=== PATIENT | male | born 1965 | race Two or more races ===

== ENCOUNTER 2024-12-09 13:46 | Emergency (ER) | payer MEDICARE, MEDICAID, SELFPAY ==
[2024-12-09 13:59] VITALS: BP 113/70; PULSE 93; RESP 18; TEMP 36.5; O2SAT 99; BMI 26.0
--- NOTE | 2024-12-09 14:15 | PD.EDSKIN ---
ED Skin Abcess FB-RME/HPI General Chief complaint: Skin/Abscess/Foreign Body Stated complaint: Abscess to left buttock X 1 week Time Seen by Provider: 12/09/24 14:10 Source: patient Arrival date/time: 12/09/24 13:46 59-year-old male with no known medical history presents to the emergency room with a chief complaint of an abscess to his left buttocks x 1 week. Patient states he believes he got bit by a spider. Mode of arrival: ambulatory Limitations: no limitations Related Data Home Medications ?Medication ?Instructions ?Recorded ?Confirmed carisoprodol 350 mg tablet (Soma) 350 mg PO TID 07/29/19 08/27/20 oxycodone-acetaminophen 10 mg-325 1 tab PO TID PRN Pain 07/29/19 08/27/20 mg tablet (Percocet) tramadol 50 mg tablet 50 mg PO TID PRN Pain 07/29/19 08/27/20 Previous Rx's ?Medication ?Instructions ?Recorded clindamycin HCl 150 mg capsule 450 mg (3 x 150 mg) PO TID #90 caps 05/23/20 clindamycin HCl 150 mg capsule 450 mg (3 x 150 mg) PO TID #90 caps 06/17/20 clindamycin HCl 300 mg capsule 300 mg PO TID #21 caps 09/04/21 hydrocodone 5 mg-acetaminophen 325 1 tab PO BID PRN pain #6 tabs 10/20/23 mg tablet hydrocodone 5 mg-acetaminophen 325 1 tab PO BID PRN pain #10 tabs 12/09/24 mg tablet sulfamethoxazole 800 1 tab PO BID #14 tabs 12/09/24 mg-trimethoprim 160 mg tablet (Bactrim DS) Allergies Allergy/AdvReac Type Severity Reaction Status Date / Time ibuprofen AdvReac Severe RASH, GI Verified 12/10/24 16:21 UPSET naproxen AdvReac Severe upset Verified 12/09/24 13:49 stomach Review of Systems Review of Systems Systems Reviewed: All systems reviewed, normal except as documented Constitutional Constitutional: Reports system reviewed and no additional complaints, except as documented, Denies fatigue, Denies fever(s), Denies headache(s) and Denies weakness Eyes Eyes: Reports system reviewed and no additional complaints, except as documented, Denies blurry vision and Denies change in vision ENT Ears, Nose, Mouth, and Throat: Reports system reviewed and no additional complaints, except as documented, Denies otalgia, Denies headache(s), Denies nasal congestion, Denies throat swelling and Denies vertigo Cardiovascular Cardiovascular: Reports system reviewed and no additional complaints, except as documented, Denies chest pain, Denies dyspnea and Denies dyspnea on exertion Respiratory Respiratory: Reports system reviewed and no additional complaints, except as documented, Denies chest congestion, Denies cough, Denies dyspnea, Denies dyspnea on exertion and Denies wheezing Gastrointestinal Gastrointestinal: Reports system reviewed and no additional complaints, except as documented, Denies abdominal pain, Denies cramping, Denies nausea and Denies vomiting Genitourinary Genitourinary: Reports system reviewed and no additional complaints, except as documented, Denies dysuria and Denies hematuria Musculoskeletal Musculoskeletal: Reports system reviewed and no additional complaints, except as documented and Denies back pain Integumentary/Breasts Skin/Breast: Reports system reviewed and no additional complaints, except as documented, Reports pruritus, Reports sores and Reports wounds Neurologic Neurologic: Reports system reviewed and no additional complaints, except as documented, Denies confusion, Denies headache(s), Denies lack of coordination, Denies vertigo and Denies weakness Psychiatric Psychiatric: Reports system reviewed and no additional complaints, except as documented, Denies anxiety, Denies confusion, Denies depression, Denies paranoia, Denies suicidal ideation and Denies tactile hallucinations Endocrine Endocrine: Reports system reviewed and no additional complaints, except as documented and Denies fatigue Hematologic/Lymphatic Hematologic/Lymphatic: Reports system reviewed and no additional complaints, except as documented and Denies lymphadenopathy Allergic/Immunologic Allergic/Immunologic: Reports system reviewed and no additional complaints, except as documented, Denies throat swelling, Denies urticaria and Denies wheezing Past Medical History Past Medical History NEUROLOGIC: Negative Neurological Disorders, Cerebrovascular Accident, Dementia, Alzheimer's Disease, Brain Tumor, Meningitis, Seizures, Epilepsy, Covington's Palsy, Migraine or Head Trauma CARDIAC: Positive Edema (left knee edema); Negative Cardiac Disorders, Myocardial Infarction, Heart Murmur, Hypercholesterolemia, Congestive Heart Failure, Cellulitis, Hypertension or Varicose Veins RESPIRATORY: Negative Chronic Obstructive Pulmonary Disease (COPD), Asthma, Pneumonia, Tuberculosis, Pulmonary Embolism or Sleep Apnea GASTROINTESTINAL: Negative Gastrointestinal Disorders, Hepatitis, Cirrhosis, Pancreatitis, Gall Bladder Disease, Gastrointestinal Bleed, Colitis, Ulcer, Irritable Bowel, Obstructive Bowel, Hemorrhoids or Gastroesophageal Reflux Disease GENITOURINARY: Negative Genitourinary Disorders, Renal Disease, Kidney Stones, Dialysis or Benign Prostatic Hyperplasia MUSCULOSKELETAL: Positive Musculoskeletal Disorders, Arthritis, Rheumatoid Arthritis and Fractures (javier 2007); Negative Degenerative Disk Disease, Gout or Poliovirus ENT: Negative Head Trauma ENDOCRINE: Negative Endocrine Disorders, Diabetes Mellitus Type 1, Diabetes Mellitus Type 2, Hyperthyroidism, Hypothyroidism, Parathyroid Disease or Pituitary Disease HEMATOLOGIC: Negative Anemia, Leukemia or Clotting Problems PSYCHO/SOCIAL: Negative Depression, Anxiety or Post Traumatic Stress Disorder OTHER HISTORY: Negative Hospitalization, Autoimmune Disease, Shingles, Falls, Blood Transfusions, Anesthesia Reactions, Chemotherapy, Radiation Therapy, MRSA, Chicken Pox, Measles, Mumps or Cancer Family History FAMILY HISTORY: Positive Family Surgery (mother-back); Negative Family Psychiatric Problems, Family Respiratory Disorders, Family Cardiac Disorders, Family Gastrointestinal Problems, Family Cancer or Family Anesthesia Reaction Surgical History SURGICAL: Negative Cardiac Surgery, Pacemaker, Endocrine Surgery, Ear Surgery, Tonsillectomy, Abdominal Surgery or Neurologic Surgery Social History SMOKING STATUS: Never smoker ED Exam General Limitations: Present no limitations General appearance: Present alert and in no apparent distress Head Head exam: Present atraumatic Eye Eye exam: Present normal appearance, PERRL and EOMI ENT ENT exam: Present normal exam, normal oropharynx and mucous membranes moist Neck Neck exam: Present normal inspection, full ROM and trachea midline Chest Chest inspection: Present normal inspection and symmetric chest wall rise Respiratory Respiratory exam: Present normal lung sounds bilaterally Cardiovascular Cardiovascular exam: Present regular rate, normal rhythm and normal heart sounds Abdominal Exam Abdominal exam: Present soft and normal bowel sounds Extremities Exam Extremities exam: Present normal inspection and full ROM Back Exam Back exam: Present normal inspection and full ROM Neurological Exam Neurological exam: Present alert, oriented X3 and CN II-XII intact Psychiatric Psychiatric exam: Present normal affect and normal mood Skin Skin exam: Present warm, dry, intact and normal color Expanded Skin Exam Type of lesion: Present abscess Distribution: Present other (Left buttock) Description: Present tenderness, erythematous, swelling and discharge Body image:  1. Patient has an 8 cm abscess to the left buttocks. The area is erythemic very tender to the touch and there is a small scab to the bottom near the gluteal cleft that is draining pus. Patient states he picked at it. Course Quality Measures none Orders Category Date Time Status Incision and Drainage Set Up X1 Care 12/09/24 14:10 Completed Set Up Suture Tray STAT Care 12/09/24 14:10 Completed Wound Care NOW Care 12/09/24 14:10 Completed Clindamycin Vial [Cleocin vial] Med 12/09/24 14:55 Discontinued 600 mg IM X1 ONE Ketorolac Inj [Toradol Inj] Med 12/09/24 14:48 Discontinued 60 mg IM X1 ONE Lidocaine 1% 20 ml [Xylocaine 1% 20 ML] Med 12/09/24 14:10 Discontinued 20 ml INFL X1 ONE Tet,Diphth,Pertuss(Acell)-Tdap [Boostrix Vacc] Med 12/09/24 14:10 Discontinued 0.5 ml IMI .ONCE ONE Vital Signs Vital signs: Vital Signs Temperature 97.7 F 12/09/24 13:59 Pulse Rate 93 12/09/24 13:59 Respiratory Rate 18 12/09/24 13:59 Blood Pressure 113/70 12/09/24 13:59 Pulse Oximetry (%) 99 12/09/24 13:59 Oxygen Delivery Method Room Air 12/09/24 13:59 O2 saturation 99% within normal limits Procedures -ED Abscess I/D Site: other (Buttocks) Side (if applicable): left Local Anesthetic: lidocaine 1% Amount of anesthesia used (mL): 5 Technique: incised with #11 blade Amount of fluid expressed (mL): 10 Irrigation: Yes Packing used?: iodoform Complications: other (No complications) Skin / Abscess / Foreign Body MDM Narrative MDM Narrative:: 59-year-old male with no known medical history presents to the emergency room with a chief complaint of an abscess to his left buttocks x 1 week. Patient states he believes he got bit by a spider. Patient is hemodynamically stable and in no apparent distress. Patient is afebrile he is not tachycardic or tachypneic and O2 saturation 99% on room air Physical examination shows an 8 cm abscess to the left buttocks. The site is erythemic, very warm to the touch, and very tender to touch. There is a small site next to the lower part of the abscess next to the gluteal cleft that is draining pus. Patient states he was picking at it and there is a scab but you can see dried pus around the area. An I&D was performed to relieve the pressure and drain the pus. Patient was sent home with antibiotics and educated to return in 48 hours for a wound recheck. PROCEDURE: incision and drainage of abscess PROCEDURE: A timeout protocol was performed prior to initiating the procedure. The area was prepared with Betadine and draped in the usual, sterile manner. The site was anesthetized with 1% lidocaine. A linear incision along the local skin lines was made and the purulent material expressed. The abscess was explored thoroughly and sequestered pockets were opened. Bleeding was minimal. Packing: iodoform packing was used Followup: The patient tolerated the procedure well without complications. Standard post-procedure care is explained and patient was educated to follow-up with his primary care provider in the next 24 to 48 hours or return to the emergency room for any evidence of worsening signs or symptoms. Patient data External records reviewed:: [facility] previous records Clinical information provided by:: patient Social determinants that could affect healthcare access:: none Patient has the following chronic illnesses:: No chronic illness How is presenting disease/condition affected by chronic disease/condition?: no chronic disease Evaluation data The following diagnostics were reviewed and interpreted by me:: lab results and radiology exam(s) Lab and/or radiology exams considered but not ordered:: Labs and radiology exams considered and ordered Interpretation Summary: N/A Medications / Prescriptions Medications or Prescriptions considered but not ordered:: Rx given Medication administrations:: Medication Administration History Discontinued Medications Clindamycin Phosphate (Clindamycin Phos Inj 150 Mg/Ml Vial 6 Ml) 600 mg IM X1 ONE Stop: 12/09/24 14:56 Last Admin: 12/09/24 15:00 Dose: 600 mg Documented By: BD Diphtheria/Tetanus/Acell Pertussis (Diphth,Pertuss(Acell),Tet Vac 0.5 Ml Syr- Adult) 0.5 ml IMi .ONCE ONE Stop: 12/09/24 14:11 Last Admin: 12/09/24 14:18 Dose: 0.5 ml Documented By: BD Ketorolac Tromethamine (Ketorolac Inj 60 Mg/2 Ml Vial) 60 mg IM X1 ONE Stop: 12/09/24 14:49 Last Admin: 12/09/24 14:55 Dose: 60 mg Documented By: BD Lidocaine HCl (Lidocaine Hcl 1% 20 Ml Vial) 20 ml INFL X1 ONE Stop: 12/09/24 14:11 Last Admin: 12/09/24 14:18 Dose: 20 ml Documented By: BD Comments: USED PROVIDER Rx given Consultations Consultation(s) initiated? (list below): No Diagnosis Skin/Abscess Differential Diagnosis: abscess of skin or subcutaneous tissue, cellulitis, insect bites and contact dermatitis Most likely diagnosis given after review of the tests above:: Abscess of skin and subcutaneous tissue Admission Indicated Admission indicated?: not indicated Admission Request Was there a request for admission?: No Disposition Plan Disposition Plan: Discharge Discharge Attestation Discharge Attestation: The patient and all family members were given an opportunity to ask questions and understood the discharge instructions. Discharge instructions specifically effects, indications for sooner follow up or return to the emergency department, and the expected course of current diagnosis. Patient condition: Stable Discharge Plan Plan Patient Disposition: HOME (Self Care) Disposition Comment: Stable Prescriptions/Referrals Prescriptions/Med Rec: New hydrocodone-acetaminophen 5-325 mg tablet 1 tab PO BID MDD 10mg PRN (Reason: pain) Qty: 10 0RF sulfamethoxazole-trimethoprim [Bactrim DS] 800-160 mg tablet 1 tab PO BID Qty: 14 0RF No Action clindamycin HCl 150 mg capsule 450 mg PO TID Qty: 90 0RF clindamycin HCl 150 mg capsule 450 mg PO TID Qty: 90 0RF clindamycin HCl 300 mg capsule 300 mg PO TID Qty: 21 0RF carisoprodol [Soma] 350 mg Tablet 350 mg PO TID tramadol 50 mg Tablet 50 mg PO TID PRN (Reason: Pain) oxycodone-acetaminophen [Percocet] 10-325 mg Tablet 1 tab PO TID PRN (Reason: Pain) hydrocodone-acetaminophen 5-325 mg tablet 1 tab PO BID MDD 10 PRN (Reason: pain) Qty: 6 0RF Problem List Clinical Impression: Encounter for incision and drainage procedure, Abscess and cellulitis of gluteal region Patient/Caregiver Discharge Instructions Education Materials: Discharge Instructions for Cellulitis, ED Abscess, Incision And Drainage, ED Cellulitis Additional Instructions: Please follow-up with your primary care provider in the next 24 to 48 hours. Antibiotics are sent to your pharmacy it is very important to pick them up and take them as indicated. An incision and drainage was performed to open up your abscess and removal of the pus. Please return to the emergency room in 48 hours for reevaluation of your wound. For any evidence of worsening signs or symptoms return to the emergency room immediately Print Language: Palauan Stand Alone Forms: Yary Award Info., Patient Portal Info Letter PA/AUTOMATIC SERGING MACHINE OPERATOR Supervising Physician PA/AUTOMATIC SERGING MACHINE OPERATOR Supervising Physician: Dr. Jackson
[2024-12-09] MEDS: DIPHTH,PERTUSS(ACELL),TET VAC 0.5 ML SYR- ADULT IMi (14:18)
[2024-12-09] MEDS: LIDOCAINE HCL 1% 20 ML VIAL INFL (14:18)
[2024-12-09] MEDS: KETOROLAC INJ 60 MG/2 ML VIAL IM (14:55)
[2024-12-09] MEDS: CLINDAMYCIN PHOS INJ 150 MG/ML VIAL 6 ML 600 MG IM (15:00)
== END 2024-12-09 15:16 | disposition home or self-care (01) ==
LOC: SERX 15:21
PROVIDERS: Emergency Provider Emergency Medicine
DX: L02.31 Cutaneous abscess of buttock (principal); L03.317 Cellulitis of buttock; Z23 Encounter for immunization; Z88.6 Allergy status to analgesic agent
CPT/HCPCS: 10060; 90471; 90715; 96372; 99283; J0736; J1885; J3490

== ENCOUNTER 2024-12-10 16:20 | Emergency (ER) | payer MEDICAID, SELFPAY ==
[2024-12-10 16:54] VITALS: BP 115/62; PULSE 82; RESP 18; TEMP 36.5; O2SAT 100
--- NOTE | 2024-12-10 16:59 | PD.EDWOUND ---
ED Wound/Laceration-RME/HPI General Chief Complaint: Wound Recheck / Suture Removal Stated Complaint: FOLLOW-UP ABSCESS Time Seen by Provider: 12/10/24 16:21 Arrival date/time: 12/10/24 16:20 59 year old male present to emergency room for wound check s/p incision drainage yesterday. LOCATION: [place] SEVERITY: Symptoms are described as being severe with limitations on activities of daily living CONTEXT: The patient is unable to identify any inciting events. DURATION/TIMING: The symptoms started approximately 1 day ASSOCIATED SYMPTOMS: The patient is unable to identify any other associated symptoms. MODIFYING FACTORS: The patient is unable to identify any alleviating or aggravating symptoms. PERTINENT ROS: no fevers, no chest pain/shortness of breath no nausea,vomiting, diarrhea, no dizziness/headache REVIEW OF SYSTEMS: See History of Present Illness - with the exception of those mentioned in the history of present illness, all other systems reviewed and reported as negative GENERAL: In general the patient is awake, interactive, in an emergency department gurney. HEAD/EYES/EARS/NOSE/THROAT: normo-cephalic, atraumatic, mucus membranes are moist, anicteric, palpebral conjunctiva is pink, trachea is midline. CARDIOVASCULAR: regular rate and regular rhythm, no murmurs, heart sounds are not distant, strong pulses in all four extremities that are equal and symmetric bilateral upper and lower extremities, normal capillary refill. BACK: normal range of motion without pain. NEUROLOGICAL: cranio-facial features are symmetric, moves all four extremities equally without obvious limitations or weakness. EXTREMITY: + left buttucks cellulities/abscess, no packing noted. + no incision drainage noted. per patient pain has improved. no tenderness to palpation over the long bones or large joints of the bilateral upper and lower extremities, no joint swelling, no joint erythema, no signs of trauma, no unilateral leg swelling and no peripheral edema. SKIN: warm, dry, well-perfused, no jaundice, no rash, no telangiectasias or petechia. PSYCH: calm, cooperative, no evidence of psychosis or agitation Related Data Home Medications ?Medication ?Instructions ?Recorded ?Confirmed carisoprodol 350 mg tablet (Soma) 350 mg PO TID 07/29/19 08/27/20 oxycodone-acetaminophen 10 mg-325 1 tab PO TID PRN Pain 07/29/19 08/27/20 mg tablet (Percocet) tramadol 50 mg tablet 50 mg PO TID PRN Pain 07/29/19 08/27/20 Previous Rx's ?Medication ?Instructions ?Recorded clindamycin HCl 150 mg capsule 450 mg (3 x 150 mg) PO TID #90 caps 05/23/20 clindamycin HCl 150 mg capsule 450 mg (3 x 150 mg) PO TID #90 caps 06/17/20 clindamycin HCl 300 mg capsule 300 mg PO TID #21 caps 09/04/21 hydrocodone 5 mg-acetaminophen 325 1 tab PO BID PRN pain #6 tabs 10/20/23 mg tablet hydrocodone 5 mg-acetaminophen 325 1 tab PO BID PRN pain #10 tabs 12/09/24 mg tablet sulfamethoxazole 800 1 tab PO BID #14 tabs 12/09/24 mg-trimethoprim 160 mg tablet (Bactrim DS) Allergies Allergy/AdvReac Type Severity Reaction Status Date / Time ibuprofen AdvReac Severe RASH, GI Verified 12/10/24 16:21 UPSET naproxen AdvReac Severe upset Verified 12/09/24 13:49 stomach Course Course Course Narrative: Patient is here for a 48-hour recheck, status post incision and drainage of skin abscess.? Patient is on appropriate antibiotic therapy? Patient is demonstrating improvement overall. There is no evidence of abscess at this time.? Recommend continue warm compresses and finishing the prescribed antibiotics.? Outpatient follow-up for further wound checks as needed were discussed. Indications for sooner reevaluation were discussed. Quality Measures none Vital Signs Vital signs: Vital Signs Temperature 97.7 F 12/10/24 16:54 Pulse Rate 82 12/10/24 16:54 Respiratory Rate 18 12/10/24 16:54 Blood Pressure 115/62 12/10/24 16:54 Pulse Oximetry (%) 100 12/10/24 16:54 Oxygen Delivery Method Room Air 12/10/24 16:54 Wound / Laceration Patient data External records reviewed:: [facility] previous records Clinical information provided by:: patient Social determinants that could affect healthcare access:: none Patient has the following chronic illnesses:: as stated in chart How is presenting disease/condition affected by chronic disease/condition?: uneffected by Evaluation data The following diagnostics were reviewed and interpreted by me:: other (specify) (none ) Lab and/or radiology exams considered but not ordered:: none Interpretation Summary: none Medications / Prescriptions Medications or Prescriptions considered but not ordered:: none Medication administrations:: none Consultations Consultation(s) initiated? (list below): No Diagnosis Wound Differential Diagnosis: other (wound check, ) Most likely diagnosis given after review of the tests above:: wound check Admission Indicated Admission indicated?: not indicated Admission Request Was there a request for admission?: No Disposition Plan Disposition Plan: Discharge Discharge Attestation Discharge Attestation: The patient and all family members were given an opportunity to ask questions and understood the discharge instructions. Discharge instructions specifically effects, indications for sooner follow up or return to the emergency department, and the expected course of current diagnosis. Patient condition: Stable Discharge Plan Plan Patient Disposition: HOME (Self Care) Health Concerns: Follow up with PMD as directed Return to ED if symptoms worsen Prescriptions/Referrals Prescriptions/Med Rec: No Action clindamycin HCl 150 mg capsule 450 mg PO TID Qty: 90 0RF clindamycin HCl 150 mg capsule 450 mg PO TID Qty: 90 0RF clindamycin HCl 300 mg capsule 300 mg PO TID Qty: 21 0RF carisoprodol [Soma] 350 mg Tablet 350 mg PO TID tramadol 50 mg Tablet 50 mg PO TID PRN (Reason: Pain) oxycodone-acetaminophen [Percocet] 10-325 mg Tablet 1 tab PO TID PRN (Reason: Pain) hydrocodone-acetaminophen 5-325 mg tablet 1 tab PO BID MDD 10 PRN (Reason: pain) Qty: 6 0RF hydrocodone-acetaminophen 5-325 mg tablet 1 tab PO BID MDD 10mg PRN (Reason: pain) Qty: 10 0RF sulfamethoxazole-trimethoprim [Bactrim DS] 800-160 mg tablet 1 tab PO BID Qty: 14 0RF Problem List Clinical Impression: Encounter for wound re-check Patient/Caregiver Discharge Instructions Education Materials: Changing Dressing Dc Print Language: Argentine Stand Alone Forms: Yary Award Info., Patient Portal Info Letter
== END 2024-12-10 17:22 | disposition home or self-care (01) ==
PROVIDERS: Emergency Provider Emergency Medicine
DX: Z48.00 Encounter for change or removal of nonsurgical wound dressing (principal)
CPT/HCPCS: 99281

== ENCOUNTER 2025-09-20 09:35 | Emergency (ER) | payer MEDICARE, MEDICAID, SELFPAY ==
[2025-09-20 10:14] VITALS: BMI 28.0
[2025-09-20 10:15] VITALS: BP 159/96; PULSE 85; RESP 17; TEMP 36.6; O2SAT 100
--- NOTE | 2025-09-20 10:30 | EDNOTE_ITS ---
ED Medical Clearance RME/HPI General Chief complaint: Medical Clearance Stated complaint: MEDICAL CLEARANCE Arrival date/time: 09/20/25 09:35 RME / HPI RME / HPI Narrative: 60 year old male with history of diabetes and anxiety presents to the ED BIB [facility] for medical clearance for incarceration today. Patient reportedly had complained of feeling his blood sugar was low. Also complained of feeling anxious though attributes that to being arrested. No other associated symptoms or complaints reported. Related Information Home Medications ?Medication ?Instructions ?Recorded ?Confirmed carisoprodol 350 mg tablet (Soma) 350 mg PO TID 08/27/20 oxycodone-acetaminophen 10 mg-325 1 tab PO TID PRN Rich n 07/29/19 08/27/20 mg tablet (Percocet) tramadol 50 mg tablet 50 mg PO TID PRN Pain 08/27/20 Previous Rx's ?Medication ?Instructions ?Recorded clindamycin HCl 150 mg capsule 450 mg (3 x 150 mg) PO TID #90 caps 05/23/20 clindamycin HCl 150 mg capsule 450 mg (3 x 150 mg) PO TID #90 caps 06/17/20 clindamycin HCl 300 mg capsule 300 mg PO TID #21 caps 09/04/21 hydrocodone 5 mg-acetaminophen 325 1 tab PO BID PRN pa in #6 tabs 10/20/23 mg tablet hydrocodone 5 mg-acetaminophen 325 1 tab PO BID PRN pa in #10 tabs 12/09/24 mg tablet sulfamethoxazole 800 1 tab PO BID #14 tabs mg-trimethoprim 160 mg tablet (Bactrim DS) Allergies Allergy/AdvReac Type Severity Reaction Status Date / Time ibuprofen AdvReac Severe RASH, GI Verified 09/20/25 10:15 UPSET naproxen AdvReac Severe upset Verified 09/20/25 10:15 stomach Review of Systems Review of Systems Systems Reviewed: All systems reviewed, normal except as documented Past Medical History Past Medical History CARDIAC: Positive Edema MUSCULOSKELETAL: Positive Musculoskeletal Disorders, Arthritis, Rheumatoid Arthritis and Fractures Family History FAMILY HISTORY: Positive Family Surgery Surgical History SURGICAL: Negative Cardiac Surgery, Pacemaker, Endocrine Surgery, Ear Surgery, Tonsillectomy, Abdominal Surgery or Neurologic Surgery Social History SMOKING STATUS: Never smoker ED Exam Narrative Physical exam: Generally patient is alert and in no obvious distress, head is normocephalic atraumatic, heart regular rate and rhythm, lungs clear to auscultation equal bilaterally, abdomen soft nondistended nontender, neurologic exam [place] Coma Scale is 15 without focal motor deficit Course Quality Measures none Vital Signs Vital signs: Vital Signs Temperature 97.9 F 09/20/25 10:15 Pulse Rate 85 09/20/25 10:15 Respiratory Rate 17 09/20/25 10:15 Blood Pressure 159/96 H 09/20/25 10:15 Pulse Oximetry (%) 100 09/20/25 10:15 Oxygen Delivery Method Room Air 09/20/25 10:15 Pulse ox is 100% on room air which is adequate. Medical Clearance MDM Narrative MDM Narrative:: Elsa Plascencia, amanda scribing for and in the presence of Dr. Tang. Vital signs are stable. Fingerstick blood sugar here in the emergency room is 189. Patient is medically clear for care home facility. Patient data External records reviewed:: [facility] previous records Clinical information provided by:: patient and law enforcement Social determinants that could affect healthcare access:: mental health Patient has the following chronic illnesses:: DM and anxiety How is presenting disease/condition affected by chronic disease/condition?: exacerbated by Evaluation data The following diagnostics were reviewed and interpreted by me:: lab results Lab and/or radiology exams considered but not ordered:: None Interpretation Summary: Bedside glucose 189. Medications / Prescriptions Medications or Prescriptions considered but not ordered:: None Medication administrations:: None Consultations Consultation(s) initiated? (list below): No Diagnosis Medical Clearance Differential Diagnosis: other (anxiety, hyperglycemia, hypoglycemia) Most likely diagnosis given after review of the tests above:: none Admission Indicated Admission indicated?: not indicated Admission Request Was there a request for admission?: No Disposition Plan Disposition Plan: Discharge Discharge Attestation Discharge Attestation: The patient and all family members were given an opportunity to ask questions and understood the discharge instructions. Discharge instructions specifically effects, indications for sooner follow up or return to the emergency department, and the expected course of current diagnosis. Patient condition: Stable Discharge Plan Plan Patient Disposition: Snf/Court/Law Prescriptions/Referrals Prescriptions/Med Rec: No Action clindamycin HCl 150 mg capsule 450 mg PO TID Qty: 90 0RF clindamycin HCl 150 mg capsule 450 mg PO TID Qty: 90 0RF clindamycin HCl 300 mg capsule 300 mg PO TID Qty: 21 0RF carisoprodol [Soma] 350 mg Tablet 350 mg PO TID tramadol 50 mg Tablet 50 mg PO TID PRN (Reason: Pain) oxycodone-acetaminophen [Percocet] 10-325 mg Tablet 1 tab PO TID PRN (Reason: Pain) hydrocodone-acetaminophen 5-325 mg tablet 1 tab PO BID MDD 10 PRN (Reason: pain) Qty: 6 0RF hydrocodone-acetaminophen 5-325 mg tablet 1 tab PO BID MDD 10mg PRN (Reason: pain) Qty: 10 0RF sulfamethoxazole-trimethoprim [Bactrim DS] 800-160 mg tablet 1 tab PO BID Qty: 14 0RF Referrals: No Primary/Family,Physician [Primary Care Provider] - In 1 week Problem List Clinical Impression: Medical clearance for incarceration Patient/Caregiver Discharge Instructions Additional Instructions: Patient is medically clear for care home facility. Print Language: [place]
== END 2025-09-20 10:52 ==
PROVIDERS: Emergency Provider Emergency Medicine
DX: Z02.89 Encounter for other administrative examinations (principal); F41.9 Anxiety disorder, unspecified
CPT/HCPCS: 99281